=== PATIENT | female | born 1970 | race African-American/Black ===

== ENCOUNTER → 2017-01-16 | Outpatient (CLI) | payer OTHER ==
[2014-06-08 16:28] VITALS: BP 181/90
[~2017-01-16] MED LIST: DIAZ5TAB4 PO; ESCITALOPRAM OX20 MG PO; ESTR1TAB44 PO; OXYC-316 PO; OXYC1TAB9 PO; SUMA50TA3 PO; TEMA30CA PO; ZOLP10TA4 PO
--- NOTE | 2017-01-17 08:06 | RAD ---
EXAM: Left shoulder, 3 views. HISTORY: Fall. COMPARISON: None. FINDINGS: Internal and external rotation and transscapular views of the left shoulder are obtained. There is no fracture, dislocation or subluxation. There is cervical spinal fusion instrumentation. IMPRESSION: No acute osseous finding.
== END | disposition home or self-care (01) ==
LOC: RAD 17:06
PROVIDERS: ATTEND Nurse Practitioner Family
DX: M25.512 Pain in left shoulder (principal)
CPT/HCPCS: 73030

== ENCOUNTER → 2017-06-25 | Outpatient (CLI) | payer OTHER ==
[~2017-06-25] MED LIST changes: +BUPIVACAINE 0.5% 50 ML VIAL. IJ; -DIAZ5TAB4 PO; -ESCITALOPRAM OX20 MG PO; -ESTR1TAB44 PO; -OXYC-316 PO; -OXYC1TAB9 PO; -SUMA50TA3 PO; -TEMA30CA PO; -ZOLP10TA4 PO; +methylPREDNISolone ACETATE 80 MG/ML VIAL. INJ
== END | disposition home or self-care (01) ==
LOC: RAD 09:08
DX: M25.512 Pain in left shoulder (principal)
CPT/HCPCS: 20611; 76942

== ENCOUNTER → 2017-12-17 | Day surgery (SDC) | payer OTHER ==
[~2017-12-17] MED LIST changes: -BUPIVACAINE 0.5% 50 ML VIAL. IJ; +DIAZ5TAB4 PO; +ESCITALOPRAM OX20 MG PO; +ESTR1TAB44 PO; +IV RINGERS,LACTATED 1000ML 1,000 ML IV SCH; +OXYC-316 PO; +OXYC-411 PO; +OXYC10TA45 PO; +PROPOFOL 40 ML IV ONE; +SUMA50TA3 PO; +TEMA30CA PO; +ZOLP10TA4 PO; -methylPREDNISolone ACETATE 80 MG/ML VIAL. INJ
[2017-12-17 10:40] VITALS: BP 128/73
--- NOTE | 2017-12-17 10:59 | PREOP HP ---
DATE OF SERVICE: DATE OF PROCEDURE: 12/17/2017. REQUESTING PHYSICIAN: Gail Cee. PRIMARY CARE PHYSICIAN: Gail Cee. REASON FOR PROCEDURE: Abdominal pain and dysphagia. HISTORY OF PRESENT ILLNESS: This is a 47-year-old female who presents with abdominal pain and dysphagia. She is to undergo upper endoscopy for further evaluation. She has had previous EGDs in [address] Warren that were unrevealing. ALLERGIES: 1. LATEX. 2. NAPROXEN. PAST MEDICAL HISTORY: 1. James's. 2. Gastric ulcer. 3. Sleep apnea. FAMILY MEDICAL HISTORY: Stroke in her grandmother. MEDICATIONS: 1. Oxycodone. 2. Escitalopram. 3. Zolpidem. 4. Temazepam. 5. Probiotic. 6. Sumatriptan. 7. Prilosec. PAST SURGICAL HISTORY: 1. Hysterectomy. 2. . 3. Breast reduction. 4. Tubal ligation. 5. BSO. 6. Cervical spinal fusion. REVIEW OF SYSTEMS: A 13-point review of systems was done. It is positive for fatigue and night sweats, change in skin, headache, neck stiffness, snoring, abdominal pain, chest pain, back pain, dizziness, hot flashes, but is otherwise positive as per HPI, otherwise negative. PHYSICAL EXAMINATION: VITAL SIGNS: She is afebrile and her vital signs are stable. GENERAL: She is an obese -[place] female in no apparent distress. HEENT: Oropharynx is clear. CARDIOVASCULAR: S1, S2. LUNGS: Clear. ABDOMEN: Active bowel sounds, soft, nontender, nondistended. EXTREMITIES: No edema. NEUROLOGIC: Awake, alert and oriented x 3. ASSESSMENT: 1. Abdominal pain. 2. Bloating. 3. Dysphagia. PLAN: The risks and benefits of the upper endoscopy including bleeding, perforation, non-diagnosis and sedation were explained, and she has agreed to proceed. Thank you for allowing me to participate in the care of this patient. KHANH MAY MD DR: FRANCINE/nael JOB#: [id number] / [id number]
--- NOTE | 2017-12-18 15:08 | PATHOLOGY ---
[facility] Accession Number: [id number] . 01 Material submitted: . PART A: SMALL BOWEL BIOPSY PART B: GASTRIC ANTRUM BIOPSY PART C: DISTAL ESOPHAGUS BIOPSY PART D: MID ESOPHAGUS BIOPSY . 01 Clinical history: . Bloating. . 02 Diagnosis: A. Small bowel, biopsy: - Duodenal mucosa with intact villous architecture and no increase in intraepithelial lymphocytes. . B. Gastric antrum, biopsy: - Chronic focally active gastritis with reactive changes. - An H. pylori immunostain is negative (block B1; appropriate control). . C. Distal esophagus, biopsy: - Squamocolumnar junctional mucosa; chronically inflamed. - Negative for intestinal metaplasia. . D. Mid esophagus, biopsy: - Fragments of unremarkable squamous mucosa. - There are no increased eosinophils, acute inflammation, or viral cytopathic effects identified. - Single minute fragment of unremarkable columnar type mucosa. . (MAP:at;12/18/2017) QTA/12/18/2017 . 02 Electronically signed: . Patrick Bryan MD, Pathologist NPI- [id number] . 01 Gross description: . A. Received in formalin labeled "Miles, Ana, small bowel biopsy" is a 0.6 x 0.5 x 0.2 cm aggregate of pink-spencer soft tissue fragments. The specimen is submitted in cassette A1. . B. Received in formalin labeled "Miles, Ana, gastric antrum biopsy" is a 0.5 x 0.3 x 0.2 cm aggregate of pink-spencer soft tissue fragments. The specimen is submitted in cassette B1. . C. Received in formalin labeled "Miles, Ana, distal esophagus" is a 0.8 x 0.5 x 0.2 cm aggregate of pink-spencer soft tissue fragments. The specimen is submitted in cassette C1. . D. Received in formalin labeled "Miles, Ana, mid esophagus biopsy" is a 0.8 x 0.3 x 0.1 cm aggregate of pink-spencer soft tissue fragments. The specimen is submitted in cassette D1. ([facility]; 12/17/2017) SYC/SYC . 02 Pathologist provided ICD-10: K29.50, K20.9 . 02 CPT . 231834, 705767, 152585, 022192, [id number] Specimen Comment: A courtesy copy of this report has been sent to Specimen Comment: [phone], . Specimen Comment: Report sent to / DR SANTIAGO Performed at: [address], [place] [id number] MD Silas Reyes MD Phone: [phone] Performed at: [address] [id number] MD Jolanta Ribeiro MD Phone: [phone]
== END | disposition home or self-care (01) ==
LOC: ENDOS 08:45
PROVIDERS: ATTEND Internal Medicine Gastroenterology
DX: K21.0 Gastro-esophageal reflux disease with esophagitis (principal); K29.50 Unspecified chronic gastritis without bleeding; Z88.8 Allergy status to other drugs, medicaments and biological substances; Z91.040 Latex allergy status; G47.30 Sleep apnea, unspecified; Z87.11 Personal history of peptic ulcer disease; Z79.899 Other long term (current) drug therapy; Z90.710 Acquired absence of both cervix and uterus; Z98.51 Tubal ligation status; Z98.1 Arthrodesis status; Z98.890 Other specified postprocedural states; Z91.048 Other nonmedicinal substance allergy status
CPT/HCPCS: 43239; 43450; 88305; 88342; J2704

== ENCOUNTER 2019-02-24 17:13 | Emergency (ER) | payer OTHER ==
[~2019-02-24] VITALS: Ht 162.6 cm; Wt 84.4 kg
[~2019-02-24 17:13] MED LIST changes: +CEFU250T59 PO; +CYCL10TA2 PO; +ESCI20TA2 PO; -IV RINGERS,LACTATED 1000ML 1,000 ML IV SCH; +KETO5DRO4 EACHEYE; +LORA10TA3 PO; +OMEP40CA45 PO; -OXYC10TA45 PO; +OXYC10TA46 PO; -PROPOFOL 40 ML IV ONE; +Pantoprazole PO; +SUMA100T3 PO; +SUMA100T4 PO; +VENTOLIN HFA18 GM INH
[2019-02-24] MEDS ORDERED: IV NORMAL SALINE 1000ML BAG 1,000 ML IV ONE (18:30)
--- NOTE | 2019-02-24 18:49 | PHYS DOC ---
Past Medical History Past Medical History: Depression, Endometriosis, Kidney Stone Additional Past Medical Histor: NECK INJURY IN 2015 Past Surgical History: Hysterectomy, Other Additional Past Surgical Histo: CERVICAL HERNIATED DISC REPAIR Alcohol Use: None Drug Use: None Adult General Chief Complaint Chief Complaint: ABDOMINAL PAIN HPI HPI 49-year-old female presents with multiple complaints which is been ongoing for several days. Patient reports her main reason for presentation to the emergency department is intractable left lower quadrant/suprapubic sharp abdominal pain 5 days.. Patient does report some radiation to her left flank. Patient also reports some associated hematuria and nausea without vomiting. Reports his had a normal bowel movement yesterday. She does report past history of kidney stones. Patient reports this pain is different than her prior kidney stone episode. Denies known sick contacts. Patient also complains of some chest discomfort which is worse with deep inspiration that started last night. Denies leg swelling or calf tenderness. Patient also complains of right foot pain which is worse with ambulation. Patient reports worse to bottom of her foot. Reports she had injured it previously 1 year ago. Patient also reports history of recent cervical disc surgery. Reports has had right hand numbness/tingling since that surgery. Reports she knows this pain is associated with her neck issues. Review of Systems Review of Systems Constitutional: Denies fever or chills Eyes: Denies redness or eye pain HENT: Denies nasal congestion or sore throat Respiratory: Denies cough or shortness of breath Cardiovascular: Reports pleuritic chest pain; denies palpitations GI: Reports abdominal pain and nausea; denies vomiting : Denies dysuria; reports hematuria Musculoskeletal: Reports neck pain and right arm paresthesias Integument: Denies rash or skin lesions Neurologic: Denies headache, focal weakness or sensory changes Complete systems were reviewed and found to be within normal limits, except as documented in this note. Current Medications Current Medications Current Medications Medications (Trade) Dose Ordered Sig/Annalise Start Time Stop Time Status Last Admin Dose Admin Ketorolac Tromethamine (Toradol 15mg Vial) 15 mg 1X ONCE 02/24/19 19:00 02/24/19 19:01 DC 02/24/19 18:55 15 MG Metoclopramide HCl (Reglan Vial) 10 mg 1X ONCE 02/24/19 19:00 02/24/19 19:01 DC 02/24/19 18:55 10 MG Sodium Chloride 1,000 ml @ 1,000 mls/hr 1X ONCE 02/24/19 18:30 02/24/19 19:29 DC 02/24/19 18:56 1,000 MLS/HR Allergies Allergies Allergies Coded Allergies Type Severity Reaction Last Updated Verified adhesive Allergy Intermediate Rash 12/17/17 Yes latex Allergy Intermediate 12/17/17 Yes naproxen Adverse Reaction Intermediate 02/06/18 Yes Physical Exam Physical Exam Constitutional: Well developed, well nourished, no acute distress, non-toxic appearance HENT: Normocephalic, atraumatic, oropharynx moist Eyes: PERRL, EOMI, conjunctiva normal, no discharge Neck: Normal range of motion, paraspinal tenderness, supple Cardiovascular: Heart rate normal, regular rhythm, right radial pulse +2, cap refill less than 2 seconds Lungs & Thorax: Bilateral breath sounds clear to auscultation, no wheezing Abdomen: Soft, left lower quadrant tenderness, no rebound tenderness/guarding/distention Skin: Warm, dry, no erythema, no rash Back: No tenderness, left CVA tenderness Extremities: Right plantar tenderness which is reproducible on palpation, ROM intact, no edema Neurologic: Alert and oriented X 3, no focal deficits noted Psychologic: Affect normal, judgement normal Current Patient Data Vital Signs Vital Signs Date Time Temp Pulse Resp B/P (MAP) Pulse Ox O2 Delivery O2 Flow Rate FiO2 02/24/19 18:15 98.9 71 20 150/101 (117) 96 Room Air 98.9 Lab Values Laboratory Tests Test 02/24/19 18:10 02/24/19 18:18 02/24/19 18:50 Urine Collection Type Unknown Urine Color Yellow Urine Clarity Clear Urine pH 7.5 Urine Specific Mcgrath 1.025 Urine Protein Negative mg/dL (NEG-TRACE) Urine Glucose (UA) Negative mg/dL (NEG) Urine Ketones (Stick) Negative mg/dL (NEG) Urine Blood Small (NEG) Urine Nitrite Negative (NEG) Urine Bilirubin Negative (NEG) Urine Urobilinogen Dipstick 0.2 mg/dL (0.2 mg/dL) Urine Leukocyte Esterase Moderate (NEG) Urine RBC 6-10 /HPF (0-2) Urine WBC 1-4 /HPF (0-4) Urine Squamous Epithelial Cells Mod /LPF Urine Bacteria Few /HPF (0-FEW) Urine Mucus Slight /LPF POC Urine HCG, Qualitative Hcg negative (Negative) White Blood Count 5.3 x10^3/uL (4.0-11.0) Red Blood Count 4.11 x10^6/uL (3.50-5.40) Hemoglobin 12.4 g/dL (12.0-15.5) Hematocrit 37.4 % (36.0-47.0) Mean Corpuscular Volume 91 fL (79-100) Mean Corpuscular Hemoglobin 30 pg (25-35) Mean Corpuscular Hemoglobin Concent 33 g/dL (31-37) Red Cell Distribution Width 14.3 % (11.5-14.5) Platelet Count 208 x10^3/uL (140-400) Neutrophils (%) (Auto) 49 % (31-73) Lymphocytes (%) (Auto) 40 % (24-48) Monocytes (%) (Auto) 8 % (0-9) Eosinophils (%) (Auto) 2 % (0-3) Basophils (%) (Auto) 1 % (0-3) Neutrophils # (Auto) 2.6 x10^3/uL (1.8-7.7) Lymphocytes # (Auto) 2.1 x10^3/uL (1.0-4.8) Monocytes # (Auto) 0.4 x10^3/uL (0.0-1.1) Eosinophils # (Auto) 0.1 x10^3/uL (0.0-0.7) Basophils # (Auto) 0.1 x10^3/uL (0.0-0.2) Prothrombin Time 12.1 SEC (11.7-14.0) Prothrombin Time INR 0.9 (0.8-1.1) Activated Partial Thromboplast Time 29 SEC (24-38) D-Dimer (Marcia) 0.42 ug/mlFEU (0.00-0.50) Sodium Level 144 mmol/L (136-145) Potassium Level 4.3 mmol/L (3.5-5.1) Chloride Level 103 mmol/L (98-107) Carbon Dioxide Level 30 mmol/L (21-32) Anion Gap 11 (6-14) Blood Urea Nitrogen 14 mg/dL (7-20) Creatinine 0.8 mg/dL (0.6-1.0) Estimated GFR (Cockcroft-Gault) 91.9 BUN/Creatinine Ratio 18 (6-20) Glucose Level 97 mg/dL (70-99) Lactic Acid Level 0.4 mmol/L (0.4-2.0) Calcium Level 9.1 mg/dL (8.5-10.1) Total Bilirubin 0.2 mg/dL (0.2-1.0) Aspartate Amino Transferase (AST) 19 U/L (15-37) Alanine Aminotransferase (ALT) 17 U/L (14-59) Alkaline Phosphatase 98 U/L (46-116) Creatine Kinase 84 U/L (26-192) Creatine Kinase MB (Mass) 0.6 ng/mL (0.0-3.6) Creatine Kinase MB Relative Index 0.7 % (0-4) Troponin I Quantitative < 0.017 ng/mL (0.000-0.055) Total Protein 7.7 g/dL (6.4-8.2) Albumin 3.7 g/dL (3.4-5.0) Albumin/Globulin Ratio 0.9 (1.0-1.7) L Lipase 134 U/L (73-393) Laboratory Tests 02/24/19 18:50 Laboratory Tests 02/24/19 18:50 EKG EKG @1829 NSR at 63bpm, NO ST elevation Radiology/Procedures Radiology/Procedures PROCEDURE: FOOT RIGHT 3V Exam: Right foot 3 views INDICATION: Pain TECHNIQUE: Frontal, lateral and oblique views of the right foot Comparisons: None FINDINGS: Bone mineralization is normal. No acute or healed fractures. Soft tissues are unremarkable. Joint spaces are well-maintained. IMPRESSION: No acute osseous abnormality. Electronically signed by: Mayte Quick MD (02/24/2019 6:51 PM) [facility] PROCEDURE: CT ABDOMEN PELVIS WO CONTRAST Exam: CT abdomen and pelvis without contrast INDICATION: Left lower quadrant pain TECHNIQUE: Sequential axial images through the abdomen and pelvis obtained without IV contrast. Sagittal and coronal reformatted images were reconstructed from the axial data and reviewed. Comparisons: None FINDINGS: Heart size is normal. No pericardial effusion. Visualized lung bases are clear. No pleural effusion. Evaluation of solid organs is limited secondary to noncontrast technique. Liver, spleen, pancreas, gallbladder and adrenals are unremarkable. No perinephric inflammation or hydronephrosis. No renal or ureteral calculi are identified. Bladder is decompressed not well evaluated. Uterus is nonenlarged. No abnormal adnexal mass. Large and small bowel are unremarkable. No free intra-abdominal air or fluid. No obstruction. Appendix is normal. Abdominal aorta has a normal course and caliber. No enlarged intra-abdominal lymph nodes are identified. No suspicious osseous lesions or acute fractures. IMPRESSION: 1. No renal or ureteral calculi are identified. No evidence for obstructive uropathy. 2. No acute process identified in the abdomen or pelvis. Exposure: One or more of the following in the visualized dose reduction techniques were utilized for this examination: 1. Automated exposure control 2. Adjustment of the MA and/or KV according to patient size 3. Use of iterative of reconstructive technique Electronically signed by: Mayte Quick MD (02/24/2019 9:32 PM) [facility] Course & Med Decision Making Course & Med Decision Making Pertinent Labs and Imaging studies reviewed. (See chart for details) Patient presents with multiple complaints including LLQ abdominal pain and left flank pain, atypical chest pain, right foot pain, and chronic right arm parethesias. Symptomatic treatment provided. IV fluid hydration given. Labs obtained and posted to chart. UA...... Troponin ........ EKG stable. HEART score ....... D-dimer..... Right foot XR without fracture or dislocation. CT abd/pelvis...... Patient stable for discharge with outpatient follow-up with PCP. Discussed findings and plan with patient, who acknowledges understanding and agreement. Dragon Disclaimer Dragon Disclaimer This electronic medical record was generated, in whole or in part, using a voice recognition dictation system. Departure Departure Impression: Primary Impression: Abdominal pain Additional Impressions: Chest pain Arm paresthesia, right Plantar fasciitis of right foot Disposition: 01 HOME, SELF-CARE Condition: STABLE Referrals: NO PCP (PCP) TABBY FAUSTIN MD Patient Instructions: Abdominal Pain (Nonspecific), Chest Pain (Nonspecific), [id number], Paresthesia, [id number], Plantar Fasciitis Scripts Prednisone (PREDNISONE) 20 Mg Tablet 2 TAB PO DAILY, #10 TAB Prov: KIRA MARRERO DO 02/24/19 Hyoscyamine Sulfate (LEVSIN-SL) 0.125 Mg Tab.subl 0.125 MG SL Q4-6HRS PRN for PAIN, #20 TAB Prov: KIRA MARRERO DO 02/24/19 Famotidine (PEPCID) 20 Mg Tablet 20 MG PO HS, #14 TAB Prov: KIRA MARRERO DO 02/24/19 Ondansetron (ONDANSETRON ODT) 4 Mg Tab.rapdis 1 TAB PO PRN Q6-8HRS PRN for NAUSEA, #16 TAB Prov: KIRA MARRERO DO 02/24/19 Problem Qualifiers Primary Impression: Abdominal pain Abdominal location: left lower quadrant Qualified Codes: R10.32 - Left lower quadrant pain Additional Impressions: Chest pain Chest pain type: unspecified Qualified Codes: R07.9 - Chest pain, unspecified KIRA MARRERO DO Feb 24, 2019 18:48
[2019-02-24 18:53] LABS: BILIRUBIN,URINE NEGATIVE (NEG); CLARITY,URINE CLEAR; COLOR,URINE YELLOW; NITRITE,URINE NEGATIVE (NEG); PH,URINE 7.5; PROTEIN,URINE NEGATIVE (NEG-TRACE); UROBILINOGEN,URINE 0.2 mg/dL (0.2 mg/dL)
--- NOTE | 2019-02-24 18:54 | RAD ---
Exam: Right foot 3 views INDICATION: Pain TECHNIQUE: Frontal, lateral and oblique views of the right foot Comparisons: None FINDINGS: Bone mineralization is normal. No acute or healed fractures. Soft tissues are unremarkable. Joint spaces are well-maintained. IMPRESSION: No acute osseous abnormality. Electronically signed by: Mayte Quick MD (02/24/2019 6:51 PM) [facility]
[2019-02-24 19:00] LABS: BASO # 0.1 x10^3/uL (0.0-0.2); BASO % 1 % (0-3); EOS # 0.1 x10^3/uL (0.0-0.7); EOS % 2 % (0-3); HEMATOCRIT 37.4 % (36.0-47.0); HEMOGLOBIN 12.4 g/dL (12.0-15.5); LYMPH # 2.1 x10^3/uL (1.0-4.8); LYMPH % 40 % (24-48); MEAN CORPUSCULAR HEMOGLOBIN 30 pg (25-35); MEAN CORPUSCULAR HGB CONC 33 g/dL (31-37); MEAN CORPUSCULAR VOLUME 91 fL (79-100); MONO # 0.4 x10^3/uL (0.0-1.1); MONO % 8 % (0-9); NEUT # 2.6 x10^3/uL (1.8-7.7); NEUT % 49 % (31-73); PLATELET COUNT 208 x10^3/uL (140-400); RED BLOOD COUNT 4.11 x10^6/uL (3.50-5.40); RED CELL DISTRIBUTION WIDTH 14.3 % (11.5-14.5); WHITE BLOOD COUNT 5.3 x10^3/uL (4.0-11.0)
[2019-02-24] MEDS ORDERED: KETOROLAC 15 MG/ML VIAL. IVP ONE (19:00)
[2019-02-24] MEDS ORDERED: METOCLOPRAMIDE HCL 10 MG/2 ML VIAL. IVP ONE (19:00)
[2019-02-24 19:01] LABS: BACTERIA,URINE FEW /HPF (0-FEW); SQUAMOUS EPITHELIAL CELL,UR MOD /LPF
[2019-02-24 19:11] LABS: CALCIUM 9.1 mg/dL (8.5-10.1); CREATININE 0.8 mg/dL (0.6-1.0); GFR 91.9; POTASSIUM 4.3 mmol/L (3.5-5.1)
[2019-02-24 19:12] LABS: PROTHROMBIN TIME PATIENT 12.1 SEC (11.7-14.0)
[2019-02-24 19:17] LABS: ALBUMIN 3.7 g/dL (3.4-5.0); ALBUMIN/GLOBULIN RATIO 0.9 (1.0-1.7); TOTAL BILIRUBIN 0.2 mg/dL (0.2-1.0); TOTAL PROTEIN 7.7 g/dL (6.4-8.2)
[2019-02-24 19:30] LABS: D-DIMER 0.42 ug/mlFEU (0.00-0.50)
[2019-02-24 21:00] VITALS: BP 127/81
--- NOTE | 2019-02-24 21:35 | RAD ---
Exam: CT abdomen and pelvis without contrast INDICATION: Left lower quadrant pain TECHNIQUE: Sequential axial images through the abdomen and pelvis obtained without IV contrast. Sagittal and coronal reformatted images were reconstructed from the axial data and reviewed. Comparisons: None FINDINGS: Heart size is normal. No pericardial effusion. Visualized lung bases are clear. No pleural effusion. Evaluation of solid organs is limited secondary to noncontrast technique. Liver, spleen, pancreas, gallbladder and adrenals are unremarkable. No perinephric inflammation or hydronephrosis. No renal or ureteral calculi are identified. Bladder is decompressed not well evaluated. Uterus is nonenlarged. No abnormal adnexal mass. Large and small bowel are unremarkable. No free intra-abdominal air or fluid. No obstruction. Appendix is normal. Abdominal aorta has a normal course and caliber. No enlarged intra-abdominal lymph nodes are identified. No suspicious osseous lesions or acute fractures. IMPRESSION: 1. No renal or ureteral calculi are identified. No evidence for obstructive uropathy. 2. No acute process identified in the abdomen or pelvis. Exposure: One or more of the following in the visualized dose reduction techniques were utilized for this examination: 1. Automated exposure control 2. Adjustment of the MA and/or KV according to patient size 3. Use of iterative of reconstructive technique Electronically signed by: Mayte Quick MD (02/24/2019 9:32 PM) [facility]
[2019-02-24] MEDS ORDERED: HYOS0.1265 SL (21:55)
[2019-02-24] MEDS ORDERED: PRED20TA PO (21:55)
[2019-02-24] MEDS ORDERED: ONDA4TAB12 PO (21:55)
[2019-02-24] MEDS ORDERED: FAMO-63 PO (21:55)
--- NOTE | 2019-02-25 04:24 | RAD ---
CHEST PA LATERAL INDICATION: Chest pain. COMPARISON STUDY: 08/31/2018. FINDINGS: Lungs: Normal lung volume. No pulmonary mass or consolidation. The tracheobronchial tree and hilar structures are normal. Pleura: No pleural effusion or pneumothorax. Heart and Mediastinum: Cardiomegaly. The great vessels of the thorax are normal. Bones and Soft Tissues: Degenerative changes of the spine. IMPRESSION: No consolidation. Electronically signed by: Garrett Chatterjee MD (02/25/2019 4:21 AM) [facility]
--- NOTE | 2019-02-25 06:38 | EKG ---
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
== END 2019-02-24 22:05 | disposition home or self-care (01) ==
LOC: ER 17:13
DX: R10.32 Left lower quadrant pain (principal); R07.89 Other chest pain; R20.2 Paresthesia of skin; M72.2 Plantar fascial fibromatosis; Z90.710 Acquired absence of both cervix and uterus; Z87.442 Personal history of urinary calculi; Z91.040 Latex allergy status; Z88.5 Allergy status to narcotic agent; Z88.8 Allergy status to other drugs, medicaments and biological substances
CPT/HCPCS: 36415; 71046; 73630; 74176; 80053; 81001; 81025; 82553; 83605; 83690; 84484; 85025; 85379; 85610; 85730; 87086; 93005; 96361; 96374; 96375; 99285; J1885; J2765; J7030

== ENCOUNTER → 2019-05-17 | Outpatient (CLI) | payer MEDICARE ==
[~2019-05-17] MED LIST changes: +AMOX500C PO; +FAMO-63 PO; +HYOS0.1265 SL; +ONDA4TAB12 PO; +PRED20TA PO
--- NOTE | 2019-05-17 14:10 | KCIC ---
FOOT LEFT 3V 05/17/2019 12:00 AM INDICATION: Left foot pain with pain in the second metatarsal COMPARISON: None available. TECHNIQUE: 3 views the left foot are provided. FINDINGS/ IMPRESSION: There is no acute fracture or dislocation. Joint spaces are maintained. Bone mineralization is within normal limits. Regional soft tissues are within normal limits. There is no soft tissue gas or osseous erosion. No radiopaque foreign body. Electronically signed by: Nu Paredes MD (05/17/2019 2:07 PM) [id number]
== END | disposition home or self-care (01) ==
LOC: KCIC 11:48
PROVIDERS: ATTEND Nurse Practitioner Family
DX: M79.672 Pain in left foot (principal)
CPT/HCPCS: 73630

== ENCOUNTER 2019-05-24 17:57 | Emergency (ER) | payer MEDICARE ==
[~2019-05-24] VITALS: Ht 162.6 cm; Wt 86.3 kg
[~2019-05-24 17:57] MED LIST changes: -AMOX500C PO
[2019-05-24 18:06] VITALS: BP 178/105
[2019-05-24] MEDS ORDERED: AMOX500C PO (18:21)
--- NOTE | 2019-05-24 18:21 | PHYS DOC ---
Past Medical History Past Medical History: Depression, Endometriosis, Kidney Stone Additional Past Medical Histor: NECK INJURY IN 2015- chronic neck pain Past Surgical History: Hysterectomy, Other Additional Past Surgical Histo: CERVICAL HERNIATED DISC REPAIR Smoking Status: Current Every Day Smoker Alcohol Use: None Drug Use: None Adult General Chief Complaint Chief Complaint: SORE THROAT HPI HPI Patient is a 49 year old -Cypriot female who presents with complaint of sore throat x3 days duration along with left ear pain. No fever or chills. No cough. No medications taken prior to arrival. She has not seen a physician. Pain is mild to moderate Review of Systems Review of Systems All other systems were reviewed and found to be within normal limits, except as documented in this note. Allergies Allergies Allergies Coded Allergies Type Severity Reaction Last Updated Verified adhesive Allergy Intermediate Rash 12/17/17 Yes latex Allergy Intermediate 12/17/17 Yes naproxen Adverse Reaction Intermediate 02/06/18 Yes Physical Exam Physical Exam Constitutional: Well developed, well nourished, no acute distress, non-toxic appearance. [] HENT: Normocephalic, atraumatic, bilateral external ears normal, oropharynx moist, no oral exudates, nose normal. There is mild posterior pharynx erythema and the left tympanic membrane is moderately erythematous consistent with otitis media. Right tympanic membrane is normal. Eyes: PERRLA, EOMI, conjunctiva normal, no discharge. [] Neck: Normal range of motion, no tenderness, supple, no stridor. [] Cardiovascular:Heart rate regular rhythm, no murmur [] Lungs & Thorax: Bilateral breath sounds clear to auscultation [] Abdomen: Bowel sounds normal, soft, no tenderness, no masses, no pulsatile masses. [] Skin: Warm, dry, no erythema, no rash. [] Back: No tenderness, no CVA tenderness. [] Extremities: No tenderness, no cyanosis, no clubbing, ROM intact, no edema. [] Neurologic: Alert and oriented X 3, normal motor function, normal sensory function, no focal deficits noted. [] Psychologic: Affect normal, judgement normal, mood normal. [] EKG EKG [] Radiology/Procedures Radiology/Procedures [] Course & Med Decision Making Course & Med Decision Making Pertinent Labs and Imaging studies reviewed. (See chart for details) We will send strep for testing. We will go ahead and treat with amoxicillin 1 g 3 times daily x10 days which should cover for strep as well secondary to otitis media. Dragon Disclaimer Dragon Disclaimer This electronic medical record was generated, in whole or in part, using a voice recognition dictation system. Departure Departure Impression: Primary Impression: Sore throat Additional Impressions: Left otitis media Elevated blood pressure reading Disposition: HOME, SELF-CARE Condition: STABLE Referrals: SINA JEAN-BAPTISTE APRN (PCP) Please follow-up in 2 weeks for blood pressure check Patient Instructions: How to Take Your Blood Pressure, [place], Otitis Media, Adult Scripts Amoxicillin (AMOXICILLIN) 500 Mg Capsule 2 CAP PO Q8HRS for infection, #60 CAP Prov: MAYANK STANTON DO 05/24/19 Problem Qualifiers MAYANK STANTON DO May 24, 2019 18:21
== END 2019-05-24 18:28 | disposition home or self-care (01) ==
LOC: ER 17:57
DX: J02.9 Acute pharyngitis, unspecified (principal); H66.92 Otitis media, unspecified, left ear; R03.0 Elevated blood-pressure reading, without diagnosis of hypertension; F17.200 Nicotine dependence, unspecified, uncomplicated; G89.29 Other chronic pain; Z91.040 Latex allergy status; Z88.5 Allergy status to narcotic agent; Z88.8 Allergy status to other drugs, medicaments and biological substances
CPT/HCPCS: 87070; 87880; 99283

== ENCOUNTER 2020-05-07 17:22 | Emergency (ER) | payer MEDICARE ==
[~2020-05-07] VITALS: Ht 162.6 cm; Wt 90.0 kg
[~2020-05-07 17:22] MED LIST changes: +AMOX500C PO; -ESCI20TA2 PO; +ESCI20TA8 PO; -OXYC-411 PO; +OXYC1TAB20 PO
[2020-05-07] MEDS ORDERED: MORPHINE SULFATE 4 MG/ML VIAL. IV/SQ PRN (18:30)
[2020-05-07] MEDS ORDERED: ASPIRIN 325 MG TABLET PO ONE (18:30)
--- NOTE | 2020-05-07 18:30 | EKG ---
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
[2020-05-07 18:36] LABS: BASO # 0.1 x10^3/uL (0.0-0.2); BASO % 1 % (0-3); EOS # 0.1 x10^3/uL (0.0-0.7); EOS % 1 % (0-3); HEMATOCRIT 38.5 % (36.0-47.0); HEMOGLOBIN 12.6 g/dL (12.0-15.5); LYMPH # 2.5 x10^3/uL (1.0-4.8); LYMPH % 37 % (24-48); MEAN CORPUSCULAR HEMOGLOBIN 30 pg (25-35); MEAN CORPUSCULAR HGB CONC 33 g/dL (31-37); MEAN CORPUSCULAR VOLUME 92 fL (79-100); MONO # 0.6 x10^3/uL (0.0-1.1); MONO % 9 % (0-9); NEUT # 3.6 x10^3/uL (1.8-7.7); NEUT % 52 % (31-73); PLATELET COUNT 248 x10^3/uL (140-400); RED BLOOD COUNT 4.19 x10^6/uL (3.50-5.40); RED CELL DISTRIBUTION WIDTH 14.6 % (11.5-14.5); WHITE BLOOD COUNT 6.9 x10^3/uL (4.0-11.0)
[2020-05-07 18:39] LABS: BILIRUBIN,URINE NEGATIVE (NEG); CLARITY,URINE CLEAR; COLOR,URINE YELLOW; NITRITE,URINE NEGATIVE (NEG); PROTEIN,URINE NEGATIVE (NEG-TRACE); UROBILINOGEN,URINE 0.2 mg/dL (0.2 mg/dL)
[2020-05-07 18:44] LABS: AMPHETAMINE/METHAMPHETAMINE NEG (NEG); BARBITURATES NEG (NEG); BENZODIAZEPINES NEG (NEG); CANNABINOIDS POS (NEG); COCAINE NEG (NEG); METHADONE NEG (NEG); OPIATES NEG (NEG); PHENCYCLIDINE NEG (NEG)
[2020-05-07 18:49] LABS: CALCIUM 8.9 mg/dL (8.5-10.1); CREATININE 0.9 mg/dL (0.6-1.0); GFR 79.9; POTASSIUM 3.6 mmol/L (3.5-5.1)
[2020-05-07 18:52] LABS: TRICHOMONAS,URINE PRESENT
[2020-05-07 18:54] LABS: BACTERIA,URINE FEW /HPF (0-FEW)
[2020-05-07 18:54] LABS: ALBUMIN 3.7 g/dL (3.4-5.0); MAGNESIUM 2.1 mg/dL (1.8-2.4); TOTAL BILIRUBIN 0.4 mg/dL (0.2-1.0); TOTAL PROTEIN 7.5 g/dL (6.4-8.2)
--- NOTE | 2020-05-07 19:02 | RAD ---
Exam: Chest one view INDICATION: Left-sided rib pain for 3 days TECHNIQUE: Frontal view of the chest Comparisons: 02/24/2019 FINDINGS: Heart is mildly enlarged. Pulmonary vessels are within normal limits. The lung and pleural spaces are clear. IMPRESSION: No acute pulmonary process. Electronically signed by: Mayte Quick MD (05/07/2020 7:00 PM) [facility]
[2020-05-07] MEDS ORDERED: metroNIDAZOLE 500 MG TABLET PO ONE (20:00)
[2020-05-07] MEDS ORDERED: cefTRIAXone IV Push 1 GM VIAL. IVP ONE (20:00)
[2020-05-07 20:06] VITALS: BP 192/90
[2020-05-07] MEDS ORDERED: DOXY100T PO (20:22)
[2020-05-07] MEDS ORDERED: CYCL10TA2 PO (20:22)
[2020-05-07] MEDS ORDERED: CEPH500T PO (20:22)
--- NOTE | 2020-05-07 20:22 | PHYS DOC ---
Past Medical History Past Medical History: Anxiety, Asthma, Depression, Endometriosis, GERD, Hypertension, Kidney Stone, Other Additional Past Medical Histor: NECK INJURY IN 2015- chronic neck pain/CHRONIC PAIN/INSOMNIA Past Surgical History: Hysterectomy, Other Additional Past Surgical Histo: CERVICAL HERNIATED DISC REPAIR Smoking Status: Current Every Day Smoker Alcohol Use: Occasionally Drug Use: None General Adult EDM: Chief Complaint: RIB PAIN HPI: HPI: Patient is a 50 year old female with history of depression, anxiety, hypertension-uncontrolled, presenting to the ED today with multiple complaints. Patient states he has an intermittent sharp 8 out of 10 left flank pain, left lower rib pain, states the rib pain radiates to the flank region. States symptoms began 3 days ago. States symptoms are worse when she coughs. She states she has been a smoker and quit a couple weeks ago and believes her symptoms are related to not smoking. Denies any shortness of breath. Denies any fever. Review of Systems: Review of Systems: Constitutional: Denies fever or chills. [] Eyes: Denies change in visual acuity. [] HENT: Denies nasal congestion or sore throat. [] Respiratory: Reports left lower rib pain. Denies cough or shortness of breath. [] Cardiovascular: Denies chest pain or edema. [] GI: Denies abdominal pain, nausea, vomiting, bloody stools or diarrhea. [] : Reports left flank pain. Denies dysuria. [] Musculoskeletal: Denies back pain or joint pain. [] Integument: Denies rash. [] Neurologic: Denies headache, focal weakness or sensory changes. [] Psychiatric: Denies depression or anxiety. [] Heart Score: HEART Score for Chest Pain: HEART Score for Chest Pain Response (Comments) Value History Slighlty/Non-Suspicious 0 ECG Normal 0 Age >45 - < 65 1 Risk Factors 1 or 2 Risk Factors 1 Troponin < Normal Limit 0 Total 2 Risk Factors: Risk Factors: DM, Current or recent (<one month) smoker, HTN, HLP, family history of CAD, obesity. Risk Scores: Score 0 - 3: 2.5% MACE over next 6 weeks - Discharge Home Score 4 - 6: 20.3% MACE over next 6 weeks - Admit for Clinical Observation Score 7 - 10: 72.7% MACE over next 6 weeks - Early Invasive Strategies Current Medications: Current Medications Medications (Trade) Dose Ordered Sig/Annalise Start Time Stop Time Status Last Admin Dose Admin Aspirin (Leonid Aspirin) 325 mg 1X ONCE 05/07/20 18:30 05/07/20 18:31 DC 05/07/20 19:23 325 MG Ceftriaxone Sodium (Rocephin) 1 gm 1X ONCE 05/07/20 20:00 05/07/20 20:01 DC 05/07/20 20:03 1 GM Metronidazole (Flagyl) 2,000 mg 1X ONCE 05/07/20 20:00 05/07/20 20:01 DC 05/07/20 20:03 2,000 MG Morphine Sulfate (Morphine Sulfate) 4 mg PRN Q15MIN PRN 05/07/20 18:30 05/08/20 18:29 05/07/20 19:24 4 MG Allergies: Allergies: Allergies Coded Allergies Type Severity Reaction Last Updated Verified adhesive Allergy Intermediate Rash 12/17/17 Yes latex Allergy Intermediate 12/17/17 Yes naproxen Adverse Reaction Intermediate 02/06/18 Yes Physical Exam: PE: Constitutional: Well developed, well nourished, no acute distress, non-toxic appearance. [] HENT: Normocephalic, atraumatic, bilateral external ears normal, oropharynx moist, no oral exudates, nose normal. [] Eyes: PERRLA, EOMI, conjunctiva normal, no discharge. [] Neck: Normal range of motion, no tenderness, supple, no stridor. [] Cardiovascular:Heart rate regular rhythm, no murmur, reproducible pain on the left lower ribs on palpation Lungs & Thorax: Bilateral breath sounds clear to auscultation [] Abdomen: Bowel sounds normal, soft, no tenderness, no masses, no pulsatile masses. [] Skin: Warm, dry, no erythema, no rash. [] Back: No tenderness, no CVA tenderness. [] Extremities: No tenderness, no cyanosis, no clubbing, ROM intact, no edema. [] Neurologic: Alert and oriented X 3, normal motor function, normal sensory function, no focal deficits noted. [] Psychologic: Affect normal, judgement normal, mood normal. [] Current Patient Data: Labs: Laboratory Tests Test 05/07/20 18:03 05/07/20 18:09 Urine Collection Type Unknown Urine Color Yellow Urine Clarity Clear Urine pH 6.0 (<5.0-8.0) Urine Specific [place] 1.025 (1.000-1.030) Urine Protein Negative mg/dL (NEG-TRACE) Urine Glucose (UA) Negative mg/dL (NEG) Urine Ketones (Stick) Negative mg/dL (NEG) Urine Blood Moderate (NEG) Urine Nitrite Negative (NEG) Urine Bilirubin Negative (NEG) Urine Urobilinogen Dipstick 0.2 mg/dL (0.2 mg/dL) Urine Leukocyte Esterase Moderate (NEG) Urine RBC 3-5 /HPF (0-2) Urine WBC 5-10 /HPF (0-4) Urine Squamous Epithelial Cells Many /LPF Urine Bacteria Few /HPF (0-FEW) Urine Mucus Mod /LPF Urine Trichomonas Present Urine Opiates Screen Neg (NEG) Urine Methadone Screen Neg (NEG) Urine Barbiturates Neg (NEG) Urine Phencyclidine Screen Neg (NEG) Urine Amphetamine/Methamphetamine Neg (NEG) Urine Benzodiazepines Screen Neg (NEG) Urine Cocaine Screen Neg (NEG) Urine Cannabinoids Screen Pos (NEG) Urine Ethyl Alcohol Neg (NEG) White Blood Count 6.9 x10^3/uL (4.0-11.0) Red Blood Count 4.19 x10^6/uL (3.50-5.40) Hemoglobin 12.6 g/dL (12.0-15.5) Hematocrit 38.5 % (36.0-47.0) Mean Corpuscular Volume 92 fL (79-100) Mean Corpuscular Hemoglobin 30 pg (25-35) Mean Corpuscular Hemoglobin Concent 33 g/dL (31-37) Red Cell Distribution Width 14.6 % (11.5-14.5) H Platelet Count 248 x10^3/uL (140-400) Neutrophils (%) (Auto) 52 % (31-73) Lymphocytes (%) (Auto) 37 % (24-48) Monocytes (%) (Auto) 9 % (0-9) Eosinophils (%) (Auto) 1 % (0-3) Basophils (%) (Auto) 1 % (0-3) Neutrophils # (Auto) 3.6 x10^3/uL (1.8-7.7) Lymphocytes # (Auto) 2.5 x10^3/uL (1.0-4.8) Monocytes # (Auto) 0.6 x10^3/uL (0.0-1.1) Eosinophils # (Auto) 0.1 x10^3/uL (0.0-0.7) Basophils # (Auto) 0.1 x10^3/uL (0.0-0.2) D-Dimer (Marcia) 0.28 ug/mlFEU (0.00-0.50) Sodium Level 139 mmol/L (136-145) Potassium Level 3.6 mmol/L (3.5-5.1) Chloride Level 105 mmol/L (98-107) Carbon Dioxide Level 29 mmol/L (21-32) Anion Gap 5 (6-14) L Blood Urea Nitrogen 14 mg/dL (7-20) Creatinine 0.9 mg/dL (0.6-1.0) Estimated GFR (Cockcroft-Gault) 79.9 BUN/Creatinine Ratio 16 (6-20) Glucose Level 94 mg/dL (70-99) Calcium Level 8.9 mg/dL (8.5-10.1) Magnesium Level 2.1 mg/dL (1.8-2.4) Total Bilirubin 0.4 mg/dL (0.2-1.0) Aspartate Amino Transferase (AST) 16 U/L (15-37) Alanine Aminotransferase (ALT) 20 U/L (14-59) Alkaline Phosphatase 75 U/L (46-116) Troponin I Quantitative < 0.017 ng/mL (0.000-0.055) ML-Xvi-J-Type Natriuretic Peptide 86 pg/mL (0-124) Total Protein 7.5 g/dL (6.4-8.2) Albumin 3.7 g/dL (3.4-5.0) Albumin/Globulin Ratio 1.0 (1.0-1.7) Laboratory Tests 05/07/20 18:09 Laboratory Tests 05/07/20 18:09 Vital Signs: Vital Signs Date Time Temp Pulse Resp B/P (MAP) Pulse Ox O2 Delivery O2 Flow Rate FiO2 05/07/20 19:24 20 98 Room Air 05/07/20 17:24 97.9 91 154/82 (106) 97.9 EKG: EK interpreted by Dr. Lord sinus rhythm heart rate 76 no STEMI [] Radiology/Procedures: Radiology/Procedures: []PROCEDURE: PORTABLE CHEST 1V Exam: Chest one view INDICATION: Left-sided rib pain for 3 days TECHNIQUE: Frontal view of the chest Comparisons: 02/24/2019 FINDINGS: Heart is mildly enlarged. Pulmonary vessels are within normal limits. The lung and pleural spaces are clear. IMPRESSION: No acute pulmonary process. Electronically signed by: Mayte Mario MD (05/07/2020 7:00 PM) [facility] DICTATED and SIGNED BY: MAYTE MARIO MD DATE: 05/07/20 [id number] 0 Course & Med Decision Making: Course & Med Decision Making Pertinent Labs and Imaging studies reviewed. (See chart for details) This is a 50-year-old female patient presenting to the ED today complaining of left lower rib, symptoms radiating to the left flank region for 3 days. EKG is negative, troponin is normal. CBC, CMP with no acute findings, chest x-ray is negative, D-dimer is normal Urine analysis positive for trichomonas and UTI. Was treated for STDs and education provided Discharge to home. Blood pressure was noted in the 150s/80 patient has history of uncontrolled hypertension. Encourage her to consider following up with her PCP Linda Disclaimer: Linda Disclaimer: This electronic medical record was generated, in whole or in part, using a voice recognition dictation system. Departure Departure Impression: Primary Impression: UTI (urinary tract infection) Qualified Codes: N39.0 - Urinary tract infection, site not specified Additional Impressions: Acute costochondritis Urinary tract infection Qualified Codes: N39.0 - Urinary tract infection, site not specified Hypertension Qualified Codes: I10 - Essential (primary) hypertension Disposition: 01 ME HOME SELF CARE/HOMELESS Condition: STABLE Referrals: NO PCP (PCP) follow up with your doctor in 1 week Patient Instructions: Costochondritis, Hypertension, Trichomoniasis-Brief, Urinary Tract Infection Additional Instructions: You were evaluated in the emergency room, you tested positive for trichomonas, this is a sexually transmitted disease. Please use protection at all times. You also have urinary tract infection. Please ensure you complete the rest of the prescribed antibiotics. Your blood pressure is high. Follow-up with your own doctor in 1 to 2 weeks Scripts Cyclobenzaprine Hcl (CYCLOBENZAPRINE HCL) 10 Mg Tablet 1 TAB PO TID, #30 TAB Prov: TALON HAINES APRN 05/07/20 Cephalexin (CEPHALEXIN) 500 Mg Tablet 1 TAB PO BID, #14 TAB Prov: TALON HAINES APRN 05/07/20 Doxycycline Hyclate (DOXYCYCLINE HYCLATE) 100 Mg Tablet 1 TAB PO BID, #14 TAB Prov: TALON HAINES APRN 05/07/20 TALON HAINES APRN May 07, 2020 20:22
== END 2020-05-07 20:45 | disposition home or self-care (01) ==
LOC: ER 17:22
DX: N39.0 Urinary tract infection, site not specified (principal); I10 Essential (primary) hypertension; M94.0 Chondrocostal junction syndrome [Tietze]; R05 Cough; R07.81 Pleurodynia; F41.9 Anxiety disorder, unspecified; J45.909 Unspecified asthma, uncomplicated; F32.9 Major depressive disorder, single episode, unspecified; K21.9 Gastro-esophageal reflux disease without esophagitis; G89.29 Other chronic pain; F17.200 Nicotine dependence, unspecified, uncomplicated; Z87.442 Personal history of urinary calculi; Z90.710 Acquired absence of both cervix and uterus; Z98.890 Other specified postprocedural states; Z91.040 Latex allergy status; Z88.8 Allergy status to other drugs, medicaments and biological substances
CPT/HCPCS: 36415; 71045; 80053; 80307; 81001; 83735; 83880; 84484; 85025; 85379; 87086; 93005; 96374; 96375; 99285; J0696; J2270

== ENCOUNTER 2020-06-02 02:59 | Emergency (ER) | payer MEDICARE ==
[~2020-06-02] VITALS: Ht 162.6 cm; Wt 86.4 kg
[~2020-06-02 02:59] MED LIST changes: +CEPH500T PO; +DOXY100T PO
[2020-06-02 03:46] LABS: BASO # 0.1 x10^3/uL (0.0-0.2); BASO % 1 % (0-3); EOS # 0.1 x10^3/uL (0.0-0.7); EOS % 1 % (0-3); HEMATOCRIT 38.5 % (36.0-47.0); HEMOGLOBIN 12.5 g/dL (12.0-15.5); LYMPH # 3.4 x10^3/uL (1.0-4.8); LYMPH % 46 % (24-48); MEAN CORPUSCULAR HEMOGLOBIN 30 pg (25-35); MEAN CORPUSCULAR HGB CONC 33 g/dL (31-37); MEAN CORPUSCULAR VOLUME 91 fL (79-100); MONO # 0.3 x10^3/uL (0.0-1.1); MONO % 5 % (0-9); NEUT # 3.5 x10^3/uL (1.8-7.7); NEUT % 48 % (31-73); PLATELET COUNT 221 x10^3/uL (140-400); RED BLOOD COUNT 4.24 x10^6/uL (3.50-5.40); RED CELL DISTRIBUTION WIDTH 14.5 % (11.5-14.5); WHITE BLOOD COUNT 7.3 x10^3/uL (4.0-11.0)
[2020-06-02 03:53] LABS: GFR 70.7; POTASSIUM 3.2 mmol/L (3.5-5.1)
--- NOTE | 2020-06-02 04:05 | RAD ---
AP chest x-ray HISTORY: Shortness of breath. COMPARISON: Chest x-ray May 07, 2020. FINDINGS: ACDF hardware. Mild cardiomegaly stable. Mediastinal silhouette is normal. No pneumothorax, pulmonary opacities or pleural effusions. IMPRESSION: No acute process. Cardiomegaly is stable. Electronically signed by: Jose G Altamirano MD (06/02/2020 4:02 AM) [facility]
[2020-06-02] MEDS ORDERED: KETOROLAC 30 MG/ML VIAL. IVP ONE (04:30)
--- NOTE | 2020-06-02 04:41 | ED.ADGEN ---
Past Medical History Past Medical History: Anxiety, Asthma, Depression, Endometriosis, GERD, Hypertension, Kidney Stone, Other Additional Past Medical Histor: NECK INJURY IN 2015- chronic neck pain/CHRONIC PAIN/INSOMNIA Past Surgical History: Hysterectomy, Other Additional Past Surgical Histo: CERVICAL HERNIATED DISC REPAIR Smoking Status: Current Every Day Smoker Alcohol Use: Heavy Drug Use: None General Adult EDM: Chief Complaint: ALCOHOL INTOXICATION HPI: HPI: Patient is 50-year-old female who presents to the emergency room with left-sided achy constant chest pain for the last 2 weeks. Patient was evaluated 2 weeks ago and at that time was diagnosed with costochondritis. Patient states that the pain is worse with talking, movement, deep breaths. She denies any cough. She is not had URI symptoms or fever. She states that she has been drinking this evening and got into an argument with her son. She states that she feels anxious. History is limited as patient is tearful and initially would not answer very many questions. Review of Systems: Review of Systems: Complete ROS is negative unless otherwise documented in HPI Current Medications: Current Medications Medications (Trade) Dose Ordered Sig/Annalise Start Time Stop Time Status Last Admin Dose Admin Ketorolac Tromethamine (Toradol 30mg Vial) 30 mg 1X ONCE 06/02/20 04:30 06/02/20 04:31 DC 06/02/20 04:21 30 MG Allergies: Allergies: Allergies Coded Allergies Type Severity Reaction Last Updated Verified adhesive Allergy Intermediate Rash 12/17/17 Yes latex Allergy Intermediate 12/17/17 Yes naproxen Adverse Reaction Intermediate 02/06/18 Yes Physical Exam: PE: General: Awake, alert, tearful, intoxicated HEENT: Atraumatic, EOMI, PERRL, airway patent, moist oral mucosa Neck: Supple, trachea midline Respiratory: CTA bilaterally, normal effort, no wheezing/crackles CV: RRR, no murmur, cap refill <2 GI: Soft, nondistended, nontender, no masses MSK: No obvious deformities Skin: Warm, dry, intact Neuro: A&O x3, speech NL, sensory and motor grossly intact, no focal deficits Psych: Tearful, anxious, not suicidal or homicidal Current Patient Data: Labs: Laboratory Tests Test 06/02/20 03:33 White Blood Count 7.3 x10^3/uL (4.0-11.0) Red Blood Count 4.24 x10^6/uL (3.50-5.40) Hemoglobin 12.5 g/dL (12.0-15.5) Hematocrit 38.5 % (36.0-47.0) Mean Corpuscular Volume 91 fL (79-100) Mean Corpuscular Hemoglobin 30 pg (25-35) Mean Corpuscular Hemoglobin Concent 33 g/dL (31-37) Red Cell Distribution Width 14.5 % (11.5-14.5) Platelet Count 221 x10^3/uL (140-400) Neutrophils (%) (Auto) 48 % (31-73) Lymphocytes (%) (Auto) 46 % (24-48) Monocytes (%) (Auto) 5 % (0-9) Eosinophils (%) (Auto) 1 % (0-3) Basophils (%) (Auto) 1 % (0-3) Neutrophils # (Auto) 3.5 x10^3/uL (1.8-7.7) Lymphocytes # (Auto) 3.4 x10^3/uL (1.0-4.8) Monocytes # (Auto) 0.3 x10^3/uL (0.0-1.1) Eosinophils # (Auto) 0.1 x10^3/uL (0.0-0.7) Basophils # (Auto) 0.1 x10^3/uL (0.0-0.2) D-Dimer (Marcia) < 0.27 ug/mlFEU Sodium Level 140 mmol/L (136-145) Potassium Level 3.2 mmol/L (3.5-5.1) L Chloride Level 101 mmol/L (98-107) Carbon Dioxide Level 29 mmol/L (21-32) Anion Gap 10 (6-14) Blood Urea Nitrogen 19 mg/dL (7-20) Creatinine 1.0 mg/dL (0.6-1.0) Estimated GFR (Cockcroft-Gault) 70.7 Glucose Level 101 mg/dL (70-99) H Calcium Level 9.0 mg/dL (8.5-10.1) Troponin I Quantitative < 0.017 ng/mL (0.000-0.055) NF-Ctk-S-Type Natriuretic Peptide 67 pg/mL (0-124) Ethyl Alcohol Level 160 mg/dL (0-10) H Laboratory Tests 06/02/20 03:33 Laboratory Tests 06/02/20 03:33 Vital Signs: Vital Signs Date Time Temp Pulse Resp B/P (MAP) Pulse Ox O2 Delivery O2 Flow Rate FiO2 06/02/20 03:04 98.5 89 18 137/70 (92) 100 Room Air 98.5 EKG: EKG: [] Heart Score: C/O Chest Pain: Yes HEART Score for Chest Pain: HEART Score for Chest Pain Response (Comments) Value History Slighlty/Non-Suspicious 0 ECG Normal 0 Age >45 - < 65 1 Risk Factors No Risk Factors 0 Troponin < Normal Limit 0 Total 1 Risk Factors: Risk Factors: DM, Current or recent (<one month) smoker, HTN, HLP, family history of CAD, obesity. Risk Scores: Score 0 - 3: 2.5% MACE over next 6 weeks - Discharge Home Score 4 - 6: 20.3% MACE over next 6 weeks - Admit for Clinical Observation Score 7 - 10: 72.7% MACE over next 6 weeks - Early Invasive Strategies Radiology/Procedures: Radiology/Procedures: [] Course & Med Decision Making: Course & Med Decision Making Pertinent Labs and Imaging studies reviewed. (See chart for details) Patient is a 50-year-old female presents to the emergency room with atypical left-sided chest pain. Patient is tearful and anxious. She was evaluated 2 weeks ago for the same pain and had normal evaluation. She did not have a D- dimer at that time. D-dimer was done today and is normal. Patient is not tachycardic or hypoxic. She does not have any abnormal labs. Patient's test results and vitals while in the ED were fully reviewed and discussed with the patient. Patient is stable and at this time does not need admission to the hospital. We have discussed strict return precautions and the importance of following up with their Primary Care Physician. Patient stated understanding and was given an opportunity to ask any questions. Patient is in agreement with plan. Linda Disclaimer: Linda Disclaimer: This electronic medical record was generated, in whole or in part, using a voice recognition dictation system. Departure Departure Impression: Primary Impression: Acute costochondritis Additional Impression: Alcohol abuse Disposition: 01 DC HOME SELF CARE/HOMELESS Condition: STABLE Referrals: NO PCP (PCP) Patient Instructions: Chest Pain (Nonspecific) Problem Qualifiers KENNETH BENJAMIN MD Jun 02, 2020 04:41
[2020-06-02 04:42] VITALS: BP 154/71
--- NOTE | 2020-06-02 11:07 | EKG ---
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
== END 2020-06-02 05:00 | disposition home or self-care (01) ==
LOC: ER 02:59
DX: M94.0 Chondrocostal junction syndrome [Tietze] (principal); F10.20 Alcohol dependence, uncomplicated; Y90.6 Blood alcohol level of 120-199 mg/100 ml; J45.909 Unspecified asthma, uncomplicated; I10 Essential (primary) hypertension; K21.9 Gastro-esophageal reflux disease without esophagitis; G89.29 Other chronic pain; F17.200 Nicotine dependence, unspecified, uncomplicated; Z91.040 Latex allergy status; Z88.5 Allergy status to narcotic agent; Z88.8 Allergy status to other drugs, medicaments and biological substances
CPT/HCPCS: 36415; 71045; 80048; 83880; 84484; 85025; 85379; 93005; 96374; 99285; G0480; J1885

== ENCOUNTER → 2021-06-03 | Outpatient (CLI) | payer OTHER ==
[~2021-06-03] MED LIST changes: +CYCL10TA19 PO; -CYCL10TA2 PO; -OMEP40CA45 PO; +OMEP40CA7 PO
--- NOTE | 2021-06-03 15:21 | RAD ---
EXAM: ABDOMINAL ULTRASOUND. HISTORY: Abdominal wall mass. COMPARISON: 02/24/2019. FINDINGS: Sonographic evaluation of the abdomen was performed. There is no sonographic correlate for abdominal wall mass at the site of concern within the right upp er and right lower quadrant. No abnormality is detected sonographically. The liver appears normal in parenchymal echotexture. There are no focal lesions. The spleen measures 7.4 cm. The gallbladder is unremarkable without evidence of stones, wall thickening or pericholecystic fluid. There is no sonographic Pugh sign. The common duct is at the upper limits of normal caliber at 7 m m. No cause for distal obstruction is appreciated. The visualized portions of the head of the pancrea s reveal no abnormality. The right kidney measures 11.2 cm. Cortical thickness and echogenicity are preserved. There is no hyd ronephrosis. The left kidney measures 11.2 cm. Cortical thickness and echogenicity are preserved. The re is no hydronephrosis. The visualized portions of the abdominal aorta and inferior vena cava are grossly patent and normal i n caliber. IMPRESSION: 1. No sonographic correlate for an abdominal wall mass. Correlate for the site of concern. 2. Common duct at the upper limits of normal caliber at 7 mm. Correlate for cholestasis to assess sig nificance. Electronically signed by: Elma Coffey MD (06/03/2021 3:18 PM) [facility]
== END ==
LOC: US 07:01
PROVIDERS: ATTEND Internal Medicine
DX: R19.00 Intra-abdominal and pelvic swelling, mass and lump, unspecified site (principal)
CPT/HCPCS: 76700